=== PATIENT | male | born 1980 | race Hispanic/Latino ===

== ENCOUNTER 2020-03-29 16:40 | Emergency (ER) | payer OTHER ==
[~2020-03-29] VITALS: Ht 170.2 cm; Wt 78.2 kg
[2020-03-29 16:41] VITALS: BP 139/90
[2020-03-29] MEDS ORDERED: ALLE60TA69 PO (17:07)
[2020-03-29] MEDS ORDERED: TERB250T12 PO (17:32)
== END 2020-03-29 17:40 | disposition home or self-care (01) ==
LOC: M ED 16:40
DX: B35.9 Dermatophytosis, unspecified (principal); Z79.899 Other long term (current) drug therapy

== ENCOUNTER → 2021-04-01 | Outpatient (CLI) | payer OTHER ==
[~2021-04-01] MED LIST: ALLE60TA69 PO; TERB250T12 PO
--- NOTE | 2021-04-02 05:41 | REP ---
INDICATION: RT KNEE PAIN. COMPARISON: None. TECHNIQUE: Single AP weightbearing view of the right and left knee. FINDINGS: Early moderate symmetric bilateral arthritic changes include cortical irregularity and subtle early spurring/osteophyte formation. Minimal medial joint space narrowing is suggested as well bilaterally. IMPRESSION: Mild/early moderate arthritic changes. <Electronically signed by Jarred Levin > 04/02/21 0537
== END ==
LOC: M SOG 08:48
PROVIDERS: ATTEND Orthopaedic Surgery Adult Reconstructive Orthopaedic Surgery
DX: M25.561 Pain in right knee (principal); M17.11 Unilateral primary osteoarthritis, right knee

== ENCOUNTER → 2021-04-15 | Outpatient (CLI) | payer OTHER ==
--- NOTE | 2021-04-16 08:29 | REP ---
INDICATION: UNSP SUBLUXATION OF RT PATELLA. Repeat MRI to re-evaluate U 8 position of possible loose body right knee. Possible preoperative planning. COMPARISON: Comparison radiographs are from November 04, 2020. Comparison MRI study of the right knee February 18, 2021. TECHNIQUE: Axial, coronal, and sagittal imaging planes utilized. T1, proton density, and T2 weighted scans are obtained in the usual fashion with without fat saturation. FINDINGS: Cortical and medullary bone signal intensity are normal. There is a moderate-sized joint effusion and a Pratt's cyst is seen in the posteromedial soft tissues measuring 4.6 cm in greatest dimension. There is mild to moderate 3 compartment osteoarthritis of the knee. There are small spurs at the medial aspect of the tibiofemoral articulation, moderate spurring is seen at the lateral tibiofemoral compartment, and mild articular spurring is seen at the superior inferior pole of the patella. There are severe chondromalacia changes in the central patella with virtually full-thickness articular cartilage loss. There are foci of nearly full-thickness T2 hyperintensity in the articular cartilage of the lateral tibial plateau consistent with advanced chondromalacia in this location. A smaller focus is seen in the lateral femoral condyle. There is an anterolateral spur at the margin of the proximal tibia partially surrounded by fluid. There is a large posterior tibial marginal spur medially posterior and adjacent to the in distal insertion of the posterior cruciate ligament which is also partially surrounded by fluid. These are not felt to be loose bodies. However, there is a low T1 low T2 signal intensity rounded structure within the anterolateral aspect of the tibiofemoral joint compartment which is felt to be compatible with a osteo cartilaginous loose body. This measures 5 x 8 x 8 mm and is unchanged in position from the comparison MRI study. This is seen adjacent to the distal fibers of the anterior cruciate ligament. The anterior and posterior cruciate ligaments appear to be intact. Patellar and quadriceps tendons are intact although there is some thickening near the patellar attachments of both of these tendons. There is no evidence of medial or lateral collateral ligament disruption. There is some fraying of the posterior horn inner free margin lateral meniscus. No other evidence of meniscal tear. 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 There is well established tibial spurring. There is evidence of an 8 mm osteochondral loose body in the anterolateral aspect of the joint. Joint effusion Pratt's cyst seen. There is fraying of the inner free margin of the posterior horn of the lateral meniscus. <Electronically signed by Fito Crenshaw > 04/16/21 1381
== END ==
LOC: M RAD 16:15
PROVIDERS: ATTEND Orthopaedic Surgery Adult Reconstructive Orthopaedic Surgery
DX: S83.001A Unspecified subluxation of right patella, initial encounter (principal); M25.461 Effusion, right knee; M71.21 Synovial cyst of popliteal space [Baker], right knee; M17.11 Unilateral primary osteoarthritis, right knee; M22.41 Chondromalacia patellae, right knee; X58.XXXA Exposure to other specified factors, initial encounter; Y92.9 Unspecified place or not applicable; Y99.9 Unspecified external cause status; Y93.9 Activity, unspecified